=== PATIENT | female | born 1970 | race Two or more races ===

== ENCOUNTER 2022-03-07 15:59 | Emergency (ER) | payer OTHER ==
[~2022-03-07] VITALS: Ht 167.6 cm; Wt 76.2 kg
[2022-03-07 16:10] VITALS: BP 132/79
--- NOTE | 2022-03-07 16:29 | NUR ---
AISHA AGRAWAL AT BEDSIDE FOR EVAL.
[2022-03-07] MEDS ORDERED: IBUP-1955 PO (18:11)
[2022-03-07] MEDS ORDERED: FLUT16SP16 BNOSTRILS (18:11)
--- NOTE | 2022-03-07 18:15 | NUR ---
Patient discharged to home in stable condition. Written and verbal after care instructions given. Patient verbalizes understanding of instruction.
== END 2022-03-07 18:16 | disposition home or self-care (01) ==
LOC: ER 16:12
DX: M26.621 Arthralgia of right temporomandibular joint (principal); J32.9 Chronic sinusitis, unspecified; H93.11 Tinnitus, right ear; G47.63 Sleep related bruxism; Z86.69 Personal history of other diseases of the nervous system and sense organs; Z79.1 Long term (current) use of non-steroidal anti-inflammatories (NSAID); Z79.899 Other long term (current) drug therapy
CPT/HCPCS: 70450-TC